=== PATIENT | male | born 1990 | race Caucasian/White ===

== ENCOUNTER 2019-08-17 10:59 | Emergency (ER) | payer OTHER ==
[2019-08-17] MEDS ORDERED: BUFFERED LIDOCAINE 10 ML SYRINGE SUBQ STA (12:07)
--- NOTE | 2019-08-17 12:09 | ED Physician Documentation ---
PD HPI SKIN - Stated complaint Stated Complaint: CHILLS/RASH - Chief complaint Chief Complaint: Wound - History obtained from History obtained from: Patient (28-year-old gentleman, active duty in the [employer], see duty currently. For the last month he has had a itchy and somewhat painful rash mostly on the left arm and leg. Over the last day or 2 he has had a painful swelling over the left elbow with redness and chills as well. No history of any skin disorders.) Review of Systems Constitutional: reports: Chills. denies: Fever, Fatigue Cardiac: denies: Chest pain / pressure, Palpitations Respiratory: denies: Dyspnea, Cough PD PAST MEDICAL HISTORY - Past Medical History Past Medical History: No Cardiovascular: None Respiratory: None Neuro: None Endocrine/Autoimmune: None GI: None : None HEENT: None Psych: None Musculoskeletal: None Derm: None - Past Surgical History Past Surgical History: Yes - Present Medications Home Medications: Ambulatory Orders Medication Instructions Recorded Confirmed Cephalexin [Keflex] 500 mg PO Q6H #28 capsule 08/17/19 Hydrocodone/Acetaminophen 1 - 2 each PO Q6H PRN #10 tablet 08/17/19 [Hydrocodon-Acetaminophen 5-325] predniSONE [Deltasone] 20 mg PO [id number] #21 tab 08/17/19 - Allergies Allergies/Adverse Reactions: Allergies Allergy/AdvReac Type Severity Reaction Status Date / Time No Known Drug Allergies Allergy Verified 08/17/19 11:09 - Social History Does the pt smoke?: No Smoking Status: Never smoker Does the pt drink ETOH?: Yes ETOH Use: Beer Does the pt have substance abuse?: No - Immunizations Immunizations are current?: Yes - POLST Patient has POLST: No PD ED PE NORMAL - Vitals Vital signs reviewed: Yes - General General: Alert and oriented X 3, No acute distress - Neck Neck: Supple, no meningeal sign, No bony TTP - Derm Derm: Other (He has what looks like a mild case of psoriasis on the extensor surfaces of the left arm and the leg. He has moderate left olecranon bursitis without limited range of motion and some cellulitis overlying that.) - Neuro Neuro: Alert and oriented X 3, Normal speech Results - Vitals Vitals: Vital Signs - 24 hr 08/17/19 11:03 Temperature 36.7 C Heart Rate 87 Respiratory 17 Rate Blood Pressure 133/74 H O2 Saturation 96 Oxygen O2 Source Room air Procedures - Abscess I&D (location) Left elbow olecranon bursa Preparation: Chlorhexadine, Lidocaine 1% Incision: Incised with scalpel. No: Purulent drainage (A little bit of serous drainage and bloody did not look purulent though, culture was obtained.) Other: Pt tolerated well, Dressing applied Departure - Departure Disposition: Home, Self Care Clinical Impression: Psoriasis, Olecranon bursitis, left elbow Condition: Good Record reviewed to determine appropriate education?: Yes Instructions: ED Bursitis Elbow Olecranon Prescriptions: Cephalexin [Keflex] 500 mg PO Q6H #28 capsule Hydrocodone/Acetaminophen [Hydrocodon-Acetaminophen 5-325] 1 - 2 each PO Q6H PRN #10 tablet PRN Reason: pain predniSONE [Deltasone] 20 mg PO [id number] #21 tab Comments: The areas of rash look like psoriasis, the steroids should help with that. The area over the left elbow is consistent with left olecranon bursitis which we have incised and drained and obtained a culture. The antibiotic should help with that. Return if worse. 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 We did perform a wound culture, if a change in antibiotics is necessary based on that we will call you in 2 to 3 days. Forms: Activity restrictions
[2019-08-17 12:32] VITALS: BP 121/73
== END 2019-08-17 12:30 | disposition home or self-care (01) ==
LOC: ED 10:59
DX: M70.22 Olecranon bursitis, left elbow (principal); L40.9 Psoriasis, unspecified
CPT/HCPCS: 23931; 87070; 87205; 99283